=== PATIENT | male | born 1990 | race Caucasian/White ===

== ENCOUNTER 2024-11-04 00:03 | Emergency (ER) | payer BC, SELFPAY ==
[2024-11-04 00:09] VITALS: BP 147/103; PULSE 96; TEMP 36.7; O2SAT 98; BMI 28.0
--- OUTSIDE RECORDS SUMMARY | 2024-11-04 00:11 | XMS_ITS | Clinical Summary ---
Author Organization [facility] Address [address] [place] [address] Care Team Providers Care Power Wheelchair Mechanic Name Role Phone Eduardo Jenkins MD Primary Care Provider [phone] Allergies No known active allergies Medications amphetamine-dex troamphetamine XR (Adderall XR) 30 MG 24 hr capsuleIndicati ons:Adult attention deficit disorder Take 1 capsule (30 mg) by mouth 1 (one) time each day at the same time 30 capsule 5 12/01/19 25 Active amphetamine-dex troamphetamine XR (Adderall XR) 30 MG 24 hr capsuleIndicati ons:Adult attention deficit disorder Take 1 capsule (30 mg) by mouth 1 (one) time each day at the same time 30 capsule 5 11/01/19 25 Discontinu ed(Reorder ) Active Problems Problem Noted Date Diagnosed Date Elevated BP without diagnosis of hypertension Assessment & Plan (09/03/2024 3:34 PM EDT): Our specific goals, for your hypertension, is to keep your blood pressure less than 140/90, and the importance of weight control. We made recommendations on how to control your blood pressure, and minimize your risk of these copmplications. We also discussed your current barriers to a healthy living and importance of healthy diet and exercise. Prior to your visit today we have reviewed your chart and formed a plan to assist with providing you the best possible care. We reviewed the possible complications of hypertension including, stroke, heart failure and kidney impairment. In addition, we discussed your medications, the importance of taking them as prescribed. DASH diet handouts Attention deficit disorder 11/23/2022 Assessment & Plan (06/04/2024 3:41 PM EDT): Patient's Current ADD is controlled with current dose No evidence of overuse or abuse Weight has been stable Encouraged Medication Holidays PDMP reviewed F/U routinely every 3 months Assessment & Plan (11/29/2023 3:37 PM EDT): Patient's Current ADD is controlled with current dose No evidence of overuse or abuse Weight has been stable Encouraged Medication Holidays PDMP reviewed F/U routinely every 3 months Assessment & Plan (05/17/2023 3:47 PM EDT): Patient's Current ADD is controlled with current dose No evidence of overuse or abuse Weight has been stable Encouraged Medication Holidays PDMP reviewed F/U routinely every3 months Assessment & Plan (02/15/2023 3:31 PM EST): Patient's Current ADD is controlled with current dose No evidence of overuse or abuse Weight has been stable Encouraged Medication Holidays PDMP reviewed F/U routinely every 4 months Assessment & Plan (11/23/2022 3:30 PM EDT): Patient's Current ADD is controlled with current dose No evidence of overuse or abuse Weight has been stable Encouraged Medication Holidays PDMP reviewed F/U routinely every 3 months Adult attention deficit disorder 11/18/2022 Assessment & Plan (09/03/2024 3:30 PM EDT): Patient's Current ADD is controlled with current dose No evidence of overuse or abuse Weight has been stable Encouraged Medication Holidays PDMP reviewed F/U routinely every 3 months Assessment & Plan (03/05/2024 3:35 PM EST): Patient's Current ADD is controlled with current dose No evidence of overuse or abuse Weight has been stable Encouraged Medication Holidays PDMP reviewed F/U routinely every 3 months Assessment & Plan (08/18/2023 3:23 PM EDT): Patient's Current ADD is controlled with current dose No evidence of overuse or abuse Weight has been stable Encouraged Medication Holidays PDMP reviewed F/U routinely every 3 months Obesity (BMI 30.0-34.9) 11/18/2022 Severe acute respiratory syn drome coronavirus 2 (SARS-CoV-2) detected 11/18/2022 Encounters Date Type Department Care Team Description 10/31/2024 Refill [facility] [address] [facility] [address] [place] [address] Eduardo Jenkins MD Adult attention deficit disorder 10/01/2024 Refill [facility] [address] [facility] [address] [place] [address] Bethany Oliva MA Adult attention deficit disorder 09/03/2024 3:30 PM EDT Office Visit [facility] [address] [facility] [address] [place] [phone] Eduardo Jenkins MD Adult attention deficit disorder (Primary Dx); Elevated BP without diagnosis of hypertension 09/03/2024 Bamboo flowsheet [facility] [address] [facility] [address] [place] [phone] Eduardo Jenkins MD 09/03/2024 Travel 08/06/2024 Refill [facility] [address] [facility] [address] [place] [phone] Bethany Oliva MA Attention deficit hyperactivity disorder (ADHD), predominantly inattentive type ; Adult attention deficit disorder from Last 3 Months Immunizations Immunization Administration Dates Next Due DTP 01/30/1990,1988,1988 ,1988 DTaP, Unspecified 08/16/2003,05/13/1994 Hep B, adult 03/15/2008,10/20/2007,09/12/2007 HiB, unspecified 02/26/1990 MMR 05/13/2000,09/09/1989 Moderna SARS-CoV-2 Vaccination 07/30/2020,2020 OPV 05/13/1994,01/30/1990,1988 ,1988 Tdap 09/05/2015 Family History Medical History Relation Name Comments Hypertension Father Relation Name Status Comments Brother Alive Daughter Alive Father Alive Mother Alive Son Alive Social History Tobacco Use Types Packs/Day Years Used Date Smoking Tobacco: Former Cigarettes 0.5 10.7 S tarted: 2000 Smokeless Tobacco: Never Tobacco Cessation:Counseling Given: Yes Alcohol Use Standard Drinks/Week Comments Yes 0 (1 standard drink = 0.6 oz pur e alcohol) 3-4 drinks monthly or less [id number] Health Literacy Answer Date Recor ded How often do you need to hav e someone help you when you read instructions, pamphlets, or other written material from your doctor or pharmacy? Never 06/04/2024 Humiliation, Afraid, Rape, and Kick questionnair e Answer Date Recorded Within the last year, have y ou been afraid of your partner or ex-partner? No 02/15/2023 Within the last year, have y ou been humiliated or emotionally abused in other ways by your partner or ex-partner? No Within the last year, have y ou been kicked, hit, slapped, or otherwise physically hurt by your partner or ex-partner? No 02/15/2023 Within the last year, have y ou been raped or forced to have any kind of sexual activity by your partner or ex-partner? No 02/15/2023 Social Connection and Isolation Panel [NHANES] A nswer Date Recorded In a typical week, how many times do you talk on the phone with family, friends, or neighbors? Three times a week 06/04/2024 How often do you get togethe r with friends or relatives? Never 06/04/2024 How often do you attend chur ch or taoism services? Never 06/04/2024 Do you belong to any clubs o r organizations such as religion groups, unions, fraternal or athletic groups, or school groups? No 06/04/2024 How often do you attend meet ings of the clubs or organizations you belong to? Never 06/04/2024 Are you , , di vorced, , never , or living with a partner? 06/04/2024 AUDIT-C Answer Date Recorded Q1: How often do you have a drink containing alc ohol? 2-3 times a week 06/04/2024 Q2: How many drinks containi ng alcohol do you have on a typical day when you are drinking? 1 or 2 06/04/2024 Q3: How often do you have si x or more drinks on one occasion? Never 06/04/2024 Overall Financial Resource Strain (CARDIA) Answe r Date Recorded How hard is it for you to pa y for the very basics like food, housing, medical care, and heating? Not very hard 06/04/2024 PHQ-2 Answer Date Recorded Patient Health Questionnaire-2 Score 0 09/03/2024 [facility] of Occupat ional Health - Occupational Stress Questionnaire Answer Date Recorded Do you feel stress - tense, restless, nervous, or anxious, or unable to sleep at night because your mind is troubled all the time - these days? To some extent 06/04/2024 Exercise Vital Sign Answer Date Recorde d On average, how many days pe r week do you engage in moderate to strenuous exercise (like a brisk walk)? 0 days 06/04/2024 On average, how many minutes do you engage in exercise at this level? 0 min 06/04/2024 Hunger Vital Sign Answer Date Recorded Within the past 12 months, y ou worried that your food would run out before you got the money to buy more. Never true 06/05/19 25 Within the past 12 months, t he food you bought just didn't last and you didn't have money to get more. Never true 06/04/2024 PRAPARE - Transportation Answer Date Re corded In the past 12 months, has l ack of transportation kept you from medical appointments or from getting medications? No 08/2024 In the past 12 months, has l ack of transportation kept you from meetings, work, or from getting things needed for daily living? No 06/04/2024 Housing Stability Vital Sign Answer Oneil e Recorded In the last 12 months, was t here a time when you were not able to pay the mortgage or rent on time? No 02/15/2023 In the last 12 months, how many places have you lived? 1 02/15/2023 In the last 12 months, was t here a time when you did not have a steady place to sleep or slept in a detention (including now)? No 02/15/2023 Housing Stability Vital Sign Answer Oneil e Recorded In the last 12 months, was t here a time when you were not able to pay the mortgage or rent on time? No 06/04/2024 In the past 12 months, how m any times have you moved where you were living? 0 06/04/2024 At any time in the past 12 m [facility], were you homeless or living in a detention (including now)? No 06/04/2024 Sex and Gender Information Value Date Recorded Sex Assigned at Not on file Legal Sex Male 9:50 PM EDT Gender Identity Not on file Sexual Orientation Not on file Last Filed Vital Signs Vital Sign Reading Time Taken Comments Blood Pressure 138/88 09/03/2024 3:23 PM EDT Pulse 97 09/03/2024 3:23 PM EDT Temperature - - Respiratory Rate 17 09/03/2024 3:23 PM EDT Oxygen Saturation 97% 09/03/2024 3:23 PM EDT Inhaled Oxygen Concentration - - Weight 90.3 kg (199 lb) 09/03/2024 3:23 PM EDT Height 177.8 cm (5' 10 ) 09/03/2024 3:23 PM EDT Body Mass Index 28.55 09/03/2024 3:23 PM EDT Plan of Treatment Upcoming Encounters Date Type Department Care Team (Late st Contact Info) Description 12/04/2024 3:30 PM EDT Office Visit [facility] [address] [facility] [address] [place] [phone] Eduardo Jenkins MD 112 [facility] [address] [place] [address] Health Maintenance Due Date Last Done Comments Influenza Vaccine (#1) 2024 Insurance [facility] Care Teams Power Wheelchair Mechanic Relationship Specialty Start Date End Date Eduardo Jenkins MD [address] [address] PCP - General Family Medicine 07/03/22
--- OUTSIDE RECORDS SUMMARY | 2024-11-04 00:11 | XMS_ITS | Encounter Summary ---
Author Organization [facility] Address [address] [place] [address] Care Team Providers Care Tunnel Form Placing Supervisor Name Role Phone Eduardo Jenkins MD Primary Care Provider [phone] Reason for Visit * Reason Onset Date Comments Med Refill 10/31/2024 Encounter Details Date Type Department Care Team (Late st Contact Info) Description 10/31/2024 Refill [facility] [address] [facility] [address] [place] [address] Eduardo Jenkins MD [address] [facility] [address] [place] [address] Adult attention deficit disorder Social History Tobacco Use Types Packs/Day Years Used Date Smoking Tobacco: Former Cigarettes 0.5 10.7 S tarted: 2000 Smokeless Tobacco: Never Alcohol Use Standard Drinks/Week Comments Yes 0 [...] often do you attend chur ch or jainism services? Never 06/04/2024 Do you belong to [...] Recorded Patient Health Questionnaire-2 Score 0 09/03/2024 [facility] of Occupat ional Health - Occupational Stress [...] place to sleep or slept in a mcfp (including now)? No 02/15/2023 Housing Stability Vital Sign Answer Oneil e Recorded In the last 12 months, was t here a time when you were not able to pay the mortgage or rent on time? No 06/04/2024 In the past 12 months, how m any times have you moved where you were living? 0 06/04/2024 At any time in the past 12 m [facility], were you homeless or living in a m[facility]p (including now)? No 06/04/2024 Sex and Gender Information Value Date Recorded Sex Assigned at Not on file Legal Sex Male 9:50 PM EDT Gender Identity Not on file Sexual Orientation Not on file documented as of this encounter Miscellaneous Notes * Telephone Encounter - DAWSON Roman - 10/31/2024 3:34 PM EDT OARRS reviewed, Rx sent into patient's pharmacy. documented in this encounter Plan of Treatment Upcoming Encounters Date Type Department Care Team (Late st Contact Info) Description 12/04/2024 3:30 PM EDT Office Visit [facility] 112 [facility] [address] [place] [address] Eduardo Jenkins MD 112 [facility] 110 [place] [address] documented as of this encounter Visit Diagnoses Diagnosis Adult attention deficit disorder documented in this encounter Care Teams Tunnel Form Placing Supervisor Relationship Specialty Start Date End Date Eduardo Jenkins MD 112 [facility] [address] [place] [address] PCP - General Family Medicine 07/03/22 documented as of this encounter
--- OUTSIDE RECORDS SUMMARY | 2024-11-04 00:11 | XMS_ITS | Encounter Summary ---
Author Organization [facility] Address [address] [place] [address] Care Team Providers Care Director Of Casino Marketing Name Role Phone Eduardo Jenkins MD Primary Care Provider [phone] Eduardo Jenkins MD Unavailable Encounter Details Date Type Department Care Team (Late st Contact Info) Description 12/13/2022 Abstract [facility] [address] [facility] [address] [place] [phone] Eduardo Jenkins MD [address] [facility] [address] [place] [address] Social History Tobacco Use Types Packs/Day Years Used Date Smoking Tobacco: Never Smokeless Tobacco: Never Tobacco Cessation:Counseling Given: Not Answered Alcohol Use Standard Drinks/Week Comments Yes 0 (1 standard drink = 0.6 oz pur e alcohol) 3-4 drinks monthly or less Sex and Gender Information Value Date Recorded Sex Assigned at Not on file Legal Sex Male 9:50 PM EDT Gender Identity Not on file Sexual Orientation Not on file documented as of this encounter Plan of Treatment Upcoming Encounters Date Type Department Care Team (Late st Contact Info) Description 12/04/2024 3:30 PM EDT Office Visit [facility] [address] [facility] [address] [place] [phone] Eduardo Jenkins MD [address] [facility] [address] [place] [address] documented as of this encounter Visit Diagnoses Not on filedocumented in this encounter Care Teams Director Of Casino Marketing Relationship Specialty Start Date End Date Eduardo Jenkins MD [address] [facility] [address] [place] [address] PCP - General Family Medicine 07/03/22 Eduardo Jenkins MD [address] [facility] [address] [place] [address] PCP - Flor Montes De Oca 11/28/21 documented as of this encounter
--- NOTE | 2024-11-04 00:19 | ED_ITS ---
HPI - Wound/Laceration General Chief Complaint: Wound/Laceration Stated Complaint: laceration Time Seen by Provider: 11/04/24 00:13 Source: patient Mode of arrival: walk-in Limitations: no limitations History of Present Illness HPI narrative: chopping wood with a hachet and cut off tip of left index finger. Not sure when he had his last tetanus. No finger weakness or numbness Related Data Home Medications ?Medication ?Instructions ?Recorded ?Confirmed dextroamphetamine-amphetamine ER PO 11/04/24 30 mg 24hr capsule,extend release Allergies Allergy/AdvReac Type Severity Reaction Status Date / Time No Known Drug Allergies Allergy Verified 11/04/24 00:08 Review of Systems ROS Status of ROS 10 or more systems reviewed and unremark able except as noted in history and below PFSH PFSH Social History Little interest or pleasure in doing things: not at all Feeling down, depressed, or hopeless: not at all Exam Constitutional Vital Signs, click to edit/add: Last Vital Signs Temp 98.0 F 11/04/24 00:09 Pulse 96 H 11/04/24 00:09 Resp 16 11/04/24 00:09 BP 147/103 H 11/04/24 00:09 Pulse Ox 98 11/04/24 00:09 O2 Del Method Room Air 11/04/24 00:09 Common normals: no apparent distress, average body habitus, oriented x3, no limitations, healthy appearing, alert and well nourished [facility] Common normals: normocephalic and head/scalp atraumatic Eye Common normals: EOMs intact bilaterally and conjunctivae normal Respiratory Common normals: normal respiratory effort, no retractions, no use of accessory muscles and clear to auscultation bilaterally Cardio Common normals: regular rate, regular rhythm, S1 normal heart sound and S2 normal heart sound Extremity Other: left index finger amputated at nail. pulsatile arterial bleed at nail bed. N/V finger tip WNL Neuro Common normals: oriented x3, CN's II-XII intact bilaterally, moves all extremities and no focal motor deficits Psych Appearance: grossly normal Course Vital Signs Vital signs: Vital Signs Temperature 98.0 F 11/04/24 00:09 Pulse Rate 96 H 11/04/24 00:09 Respiratory Rate 16 11/04/24 00:09 Blood Pressure 147/103 H 11/04/24 00:09 Pulse Oximetry 98 11/04/24 00:09 Oxygen Delivery Method Room Air 11/04/24 00:09 Temperature 98.0 F 11/04/24 00:09 Pulse Rate 96 H 11/04/24 00:09 Respiratory Rate 16 11/04/24 00:09 Blood Pressure 147/103 H 11/04/24 00:09 Pulse Oximetry 98 11/04/24 00:09 Oxygen Delivery Method Room Air 11/04/24 00:09 MDM - Wound/Laceration MDM Narrative Medical decision making narrative: patient presents after he mistakenly struck and amputate the tip of his left index finger off with a hatchet while cutting wood. Site inspected and found to have an arterial bleeder at the nail bed. maybe 10% of nail remaining. site cleaned. 1% lidocaine given to numb the area and silver nitrate use to control the bleeding. Wound then dressed with tube gauze. xray per my preliminary reading with tuft fracture of the finger. Patient given tetanus and augmentin. Discharged to follow up with orthopedics Discharge Plan Discharge Chief Complaint: Wound/Laceration Clinical Impression: Fracture of phalanx of left index finger, Amputation of left index finger Patient Disposition: Home, Self-Care Prescriptions / Home Meds: No Action dextroamphetamine-amphetamine 30 mg capsule,extended release 24hr PO Print Language: Romanian Instructions: Finger Fracture (ED), Finger Amputation (ED) Additional Instructions: follow up with orthopedics Dr Drake next week Referrals: MEHUL PULIDO [Primary Care Provider, Family Practice] - 1 week
--- NOTE | 2024-11-04 00:58 | XR_ITS ---
The [address] [address] Patient Name: SHAREE PADGETT MRN: [id number] date: 1990 Sex: M Assigned Patient Location: ER Current Patient Location: Accession/Order Number: [id number] Exam Date: 11/04/2024 01:03 Report Date: 11/04/2024 09:19 At the request of: RUSSELL KAT MD Procedure: XR hand LT min 3V LEFT HAND - 3 views REASON FOR EXAM: Cut left second digit. COMPARISON: None FINDINGS: Soft tissue injury involving distal aspect of the second digit. Calcification is seen in the region of soft tissue defect. There is sclerosis involving the distal tip of the distal phalanx without fracture. XR/XR hand LT min 3V IMPRESSION: SOFT TISSUE INJURY DISTAL ASPECT OF THE SECOND DIGIT. NO DEFINITE ACUTE FRACTURE IS SEEN. THERE APPEARS TO BE CALCIFICATION AND SCLEROSIS INVOLVING THE DISTAL ASPECT OF THE DISTAL PHALANX OF THE SECOND DIGIT. FINDING MAY RELATE TO PRIOR INJURY. Impression dictated by: Zain Schaefer Jr., D.O. 11/04/2024 9:19 AM Dictation Location: [place] [address] Electronically authenticated by: [id number] Y Date: 11/04/2024 09:19
--- NOTE | 2024-11-04 01:06 | PC.NURSE ---
Pt presents to ER for a left index finger partial amputation Pt was chopping firewood with a hatchet and got the tip of his finger Base of nail bed still in pllace Pt had pressure gauze applied - as he started unwrapping it blood was pulsatingly squirting from the tip of finger 8 siver nitrate sticks utilized to stop bleeding along with gauze and pressure Tube gauze dressing applied by this nurse Pt does not know when his last tetanus shot was xray to be performed
[2024-11-04] MEDS: AMOXICILLIN/POT CLAV 875-125 MG TABLET 1 TAB PO (01:21)
[2024-11-04] MEDS: DIPHTH,PERTUSS(ACELL),TET VAC 0.5 ML SYRINGE IM (01:21)
[2024-11-04] MEDS: LIDOCAINE HCL 1% 100 MG/10 ML MDV INJ (01:22)
[2024-11-04] MEDS: SILVER NITRATE APPLICATOR STICK 8 APPLIC TOPICAL (01:23)
== END 2024-11-04 01:48 | disposition home or self-care (01) ==
PROVIDERS: Emergency Provider Internal Medicine; PCP Family Medicine
DX: S62.601B Fracture of unspecified phalanx of left index finger, initial encounter for open fracture (principal); W27.0XXA Contact with workbench tool, initial encounter; Y93.89 Activity, other specified; Z23 Encounter for immunization
CPT/HCPCS: 73130; 90715; 99285